=== PATIENT | male | born 1985 | race Caucasian/White ===

== ENCOUNTER 2017-05-22 23:15 | Emergency (ER) | payer BC ==
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
[2017-05-22] MEDS ORDERED: ceFAZolin 1,000 MG in DEXTROSE/WATER 1 50ML.BAG IVPB STA (23:37)
--- NOTE | 2017-05-22 23:50 | XR ---
EXAM: XR Right Foot Complete, 3 or More Views CLINICAL HISTORY: Reason: injury TECHNIQUE: Frontal, lateral and oblique views of the right foot. COMPARISON: No relevant prior studies available. FINDINGS: Bones/joints: Acute mildly displaced transverse fracture of the mid diaphysis of the proximal phalanx of the third toe. Linear lucency in the the medial base of the proximal phalanx of the fifth toe seen only on the frontal view is concerning for a nondisplaced fracture. Soft tissues: Unremarkable. No radiopaque foreign body. IMPRESSION: Acute fracture of the diaphysis of the proximal phalanx of the third toe. Suspected nondisplaced fracture of the medial base of the proximal phalanx of the fifth toe. CT may be considered for further evaluation, as clinically indicated.
--- NOTE | 2017-05-23 01:33 | XR ---
EXAM: XR Right Foot Complete, 3 or More Views CLINICAL HISTORY: Reason: post-reduction TECHNIQUE: Frontal, lateral and oblique views of the right foot. COMPARISON: 05/22/2017 8215 FINDINGS: Bones/joints: Acute minimally displaced transverse mid diaphyseal fracture of the proximal phalanx of the third toe is in stable alignment. Suspected nondisplaced fracture of the medial proximal phalanx of the fifth toe. Soft tissues: Unremarkable. No radiopaque foreign body. IMPRESSION: Fracture of the proximal phalanx of the third toe is in stable alignment.
[2017-05-23] MEDS ORDERED: ACET/COD 300 MG/30 MG STARTER PACK 6 TAB BTL PO STA (02:06)
--- NOTE | 2017-05-23 02:06 | XR ---
EXAM: XR Right Foot Complete, 3 or More Views CLINICAL HISTORY: Reason: post reduction TECHNIQUE: Frontal, lateral and oblique views of the right foot. COMPARISON: 05/23/2017 0046 FINDINGS: Bones/joints: Improved alignment of an acute transverse diaphyseal fracture of the proximal phalanx of the third toe. Stable suspected nondisplaced fracture of the medial proximal phalanx of the fifth toe. Soft tissues: Unremarkable. No radiopaque foreign body. IMPRESSION: Improved alignment of an acute transverse diaphyseal fracture of the proximal phalanx of the third toe.
[2017-05-23 02:20] VITALS: BP 105/61; PULSE 60; RESP 16; TEMP 98
== END 2017-05-23 02:25 | disposition home or self-care (01) ==
LOC: EC 23:15
DX: S92.511A Displaced fracture of proximal phalanx of right lesser toe(s), initial encounter for closed fracture (principal); W51.XXXA Accidental striking against or bumped into by another person, initial encounter; Y92.89 Other specified places as the place of occurrence of the external cause; Y93.41 Activity, dancing
CPT/HCPCS: 73620; 73630 ×2; 99283; 96365; J0690

== ENCOUNTER → 2020-07-25 | Outpatient (CLI) | payer BC ==
--- NOTE | 2020-07-25 16:45 | CT ---
EXAMINATION TYPE: CT sinus wo con DATE OF EXAM: 07/25/2020 COMPARISON: CT facial bones 02/13/2011 HISTORY: Nasal swelling, congestion and pain. History of facial reconstruction for micrognathia. CT DLP: 673.2 mGycm. Automated Exposure Control for Dose Reduction was Utilized. TECHNIQUE: CT scan of the sinuses is performed without contrast, axial images are obtained, coronal r eformatted images are also reviewed. FINDINGS: Redemonstrated reconstruction postsurgical changes of the bilateral anterior crews of the maxillary s inuses with multiple screws in the anterior maxilla. There is interval osseous bony expansion and cor tical loss of the anterior inferior maxillary wall, with new periapical lucency around the right maxi llary first and second premolars and anterior first molar. There is new lucent bony expansion and per iapical lucency of the right maxilla of the first and second right maxillary molars which is septated inferiorly and joins the anterior bony expansile lytic lesion superiorly, to form a conjoined cavity of approximately 4.2 x 2.0 x 3.1 cm AP, transverse, and craniocaudal (3:16) with soft tissue compone nt extending anteriorly to the maxilla. There is cortical discontinuity at the superior septation int o the generalized floor of the maxillary sinus (6:24). There is posterolateral cortical loss of the r ight maxilla just posterior and superior to the right second maxillary molar (3:11). There are also a reas of cortical loss laterally to the periapical lucencies involving the first and second premolars (3:7). The main expansile cavity within the floor of the right maxillary sinus expands medially and i s abutting the right inferior turbinate with mass effect (3:19, 6:24). There is cortical loss of the posterior maxillary sinus at the level of the inferior turbinate (3:22) with no asymmetric adjacent s oft tissue. There is cortical loss at the lateral wall of the maxillary sinus at the level of the inf erior nasal passage (3:18) with asymmetric soft tissue seen just lateral to the cortex breakthrough m easuring 0.4 x 0.2 cm (4:18). There is mucosal thickening of the bilateral maxillary sinuses, with mild foamy appearance on the lef t which may represent acute sinusitis. There is bony hyperostosis of the posterior maxillary sinuses bilaterally suggestive of chronic sinusitis. Bilateral maxillary uncinectomies and sinusotomies, with opacification of the left maxillary ostium. Left middle turbinate berhane bullosa is now opacified. There is mucosal thickening of the ethmoid air cells. There is occlusion of the bilateral sphenoid ostia and frontoethmoidal recesses. There is muc osal thickening of the left frontal sinus inferiorly. Leftward deviation of the nasal septum. Visualized portion of mastoid air cells show no abnormal opacification. The globes are grossly symme tric. IMPRESSION: 1. Postsurgical reconstruction changes of the bilateral anterior crews of the maxillary sinuses. Ther e is a new and increased smooth bony expansile pericoronal lucent lesion of the right maxilla with pe riapical lucencies from the right 1st premolar to the 2 molar. This lesion appears mostly unicystic w ithin the right maxillary sinus, measuring up to 4.2 x 2.0 x 3.1 cm. There are several areas of corti sandor breakthrough as described above, with significantly increased cortical loss of the anterior wall of the right maxillary sinus versus 02/13/2011 CT comparison. There is soft tissue extension beyond so me areas of cortical breakthrough, which are limited in evaluation due to lack of intravenous contras t. There is also mass effect on the right inferior turbinate. Primary differential is given to odonto genic etiology such as ameloblastoma or other pericoronal radiolucent lesions. Due to the thin smooth appearance of the expanded bone, this lesion does not appear related to chronic osteomyelitis. 2. Extensive paranasal sinus disease as above. Dr. Lynn Rai discussed findings with Dr. Jose R Ochoa via the phone on 07/25/2020 at 4 :15 PM, and results were acknowledged.
== END | disposition home or self-care (01) ==
LOC: RADCTMAIN 10:14
PROVIDERS: ATTEND Otolaryngology
DX: J32.9 Chronic sinusitis, unspecified (principal); R22.0 Localized swelling, mass and lump, head
CPT/HCPCS: 70486

== ENCOUNTER → 2020-08-04 | Day surgery (SDC) | payer BC ==
[2020-07-29 14:15] VITALS: BMI 26.0
[~2020-08-04] MED LIST: BACITRACIN ZINC 500 UNIT/GM OINT 28.4 GM TUBE TOPICAL ONE; DEXAMETHASONE SOD PHOSPHATE 10 MG/ML 1 ML VIAL IV ONE; DEXAMETHASONE SOD PHOSPHATE 10 MG/ML 1 ML VIAL ONE; DEXAMETHASONE SOD PHOSPHATE 4 MG/ML 1 ML VIAL IV ONE; EPINEPHrine 1 MG/ML (MDV) 30 ML VIAL IRRIGATION ONE; FAMOTIDINE 20 MG/2 ML VIAL IV ONE; FLUORESCEIN STRIPS 1 MG STRIP MISCELLANE ONE; HYDROcodone/APAP 5-325MG 1 EACH TAB ONE; HYDROcodone/APAP 5-325MG 1 EACH TAB PO ONE; LACTATED RINGERS 1,000 ML IV SCH; LIDOCAINE 1% INJ 10MG/ML (20 ML MDV) ONE; LIDOCAINE 1%-EPI 1:100,000 20 ML VIAL SQ ONE; MIDAZOLAM 2 MG/2 ML VIAL ONE; ONDANSETRON 4 MG/2 ML VIAL IVP ONE; PROPOFOL 10 MG/ML 20 ML VIAL IV ONE; SUCCINYLCHOLINE CHLORIDE 100 MG/5 ML SYR IV ONE; amLODIPine 5 MG TAB PO STA; diphenhydrAMINE 50 MG/ML 1 ML VIAL IVP ONE; fentaNYL (PF) 50 MCG/ML 2 ML AMP ONE
[2020-08-04] MEDS: OXYMETAZOLINE 0.05% NASL SPRAY 1 SPRAY BOTTLE NASAL ONE ×5 (07:10→07:30)
[2020-08-04] MEDS: ONDANSETRON 4 MG/2 ML VIAL IVP ONE ×2 (07:21→09:51)
[2020-08-04 07:33] LABS: Glucose,Whole Blood 113 mg/dL (75-99)
[2020-08-04] MEDS: HYDROmorphone 0.5 MG/0.5 ML SYRINGE IVP PRN ×4 (09:51→10:18)
[2020-08-04 09:58] VITALS: RESP 16; TEMP 97.6
--- NOTE | 2020-08-04 10:23 | P.OP ---
Date of Procedure: 08/04/20 Preoperative Diagnosis: chronic pansinusitis with sinonasal polyposis, deviated nasal septum, bilateral hypertrophy of inferior nasal turbinates Postoperative Diagnosis: same Procedure(s) Performed: bilateral functional endoscopic sinus surgery with polypectomy and placement of propel septoplasty bilateral submucosal resection of the inferior nasal turbinates with outfracture and compression. Anesthesia: GETA Surgeon: Roberto Ochoa Estimated Blood Loss (ml): 20 Pathology: other (sinonasal) Condition: stable Disposition: PACU Indications for Procedure: this patient presented to the office with multiple sinonasal symptoms and referred by his oral surgeon. He had a CAT scan performed demonstrating the absence of bone along the anterior maxillary sinus on the right and he redid facial swelling often from his chronic pansinusitis. Patient appears to have had recurrence of his polyps and chronic infection. He's developed anosmia. He had a previous polypectomy in 2008 and was doing well except for the last few years where his sinonasal symptoms have returned. 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 He has constant nasal obstruction constant discolored drainage anosmia facial pain and pressure for the last 2 years. He's been on multiple antibiotics and cortisone nasal sprays with no improvement. CAT scan shows impressive polyp recurrence chronic pansinusitis. He also has developed a deviated nasal septum from the pressure displacement of the polyps intranasally along with large obstructive inferior turbinates. Patient is requesting surgi sandor correction. All risks, benefits, and alternative therapies were discussed in detail. Risks of bleeding, infection, penetration into the orbit or brain, need for secondary surgery neurologic complications, anesthetic complications etc. etc. were explained in detail. Consent was obtained and all questions were answered. Operative Findings: this patient was found have widespread sinonasal disease and polyps. Septum was deviated to the left inferior turbinates were large and obstructive. There is widespread intranasal and sinonasal polyps and roberto pus seen everywhere. Description of Procedure: this patient was taken to the operative room and placed in the supine position. A general inhalation anesthetic was administered to the patient by mask and subsequently intubated with a cuffed endotracheal tube by the department of anesthesia with a functioning IV line in place. The patient was monitored throughout the entire case by the department of anesthesia. The septum lateral nasal wall inferior turbinates and sphenopalatine ganglion was injected with lidocaine and epinephrine. 10 minutes were allowed wait for full vasoconstrictive effects to take place. Intranasal polypectomy was performed with use of a microdebrider. A caudal incision was made over the caudal portion of the left septum down to the mucoperichondrium. A mucoperichondrial flap was developed to the extent of visualization on the left and a crossover incision was made with for the mucoperichondrial flap development to the extent of visualization on the contralateral side. The septum was severely deviated to the left. With use of crosshatching incisions the septum was straightened and placed back in the midline. We removed redundant strips of septal cartilage. Once the septum was straightened we sutured the septum to the vomerian groove and at the end of the case we inserted Robison splints. We also did a quilting stitch to reapproximate the septal flaps. The septum was straightened and was in a perfect alignment. We then entered the inferior turbinates with use of a microdebrider. With use of a 2 mm blade a submucosal resection of the inferior nasal turbinates was performed. This was done bilaterally. We then did an outfracturing compression with use of a Naartjie nasal elevator. Excellent opening airway was obtained. We then entered the nose intranasally with use of a 0 and 30 Carson royal scope. We performed the rest of the surgery under endoscopic visualization. We didn't infraturbinal maxillary antrostomies And removed diseased tissue from the maxillary sinuses bilaterally. We then opened up the maxillary sinuses above the inferior turbinates widely with a microdebrider and we entered the maxillary sinuses and we remove diseased tissue from the maxillary sinuses bilaterally. We then entered the ethmoid sinuses and we removed ethmoid and nasal polyps under endoscopic visualization with a microdebrider. We removed all ethmoid septations following the fovea frontalis to the posterior ethmoid air cells and did a complete and total ethmoidectomy with removal of all ethmoid air cells and polyp disease. Below the superior turbinate we opened up the sphenoid sinus bilaterally. We entered the sphenoid sinus and we remove diseased tissue from the sphenoid sinuses. This was done bilaterally. This was done with use of the 0 Carson royal scope and microdebrider. We then entered the frontal sinuses and we removed polyps. We used an entellus balloon to widen the frontal sinuses which then allowed us to enter the frontal sinuses and we remove diseased tissue and polyps from the frontal sinuses bilaterally. The nasal frontal ducts were opened nicely. After all sinuses were opened and all sinuses were explored and all sinuses had diseased tissue and polyps removed we then inserted propel bilaterally along with xerogel bilaterally. We also used Surgicel powder. Intranasal Robison splints were inserted and sutured fixated. Nasal pore was placed between the anterior portion of the inferior turbinate and splints. Excellent straightening of the septum was performed and the patient tolerated this well. We will see the patient back in the office on August 08 at 7:30 for splint removal. The patient is to call me if any problems should arise.
[2020-08-04 11:46] VITALS: PULSE 48
[2020-08-04 11:57] VITALS: BP 125/70
== END | disposition home or self-care (01) ==
LOC: OR 06:48
PROVIDERS: ATTEND Otolaryngology
DX: J32.4 Chronic pansinusitis (principal); J34.2 Deviated nasal septum; J34.3 Hypertrophy of nasal turbinates; R43.0 Anosmia; R51 Headache; Z97.3 Presence of spectacles and contact lenses; Z96.7 Presence of other bone and tendon implants; Z98.890 Other specified postprocedural states; Z79.1 Long term (current) use of non-steroidal anti-inflammatories (NSAID); Z79.891 Long term (current) use of opiate analgesic; Z79.52 Long term (current) use of systemic steroids; Z79.899 Other long term (current) drug therapy; Z91.048 Other nonmedicinal substance allergy status
CPT/HCPCS: 88305; 88300; 30520; 30140; 31267; 31259; 31253; C2625; C1726; J0171; J2250; J1200; J1100; J2405; J2001; J3010; J0330; J2704; J1170